=== PATIENT | female | born 1965 | race Two or more races ===

== ENCOUNTER 2020-03-24 06:50 | Day surgery (SDC) | payer OTHER | END 2020-03-24 11:50 | disposition home or self-care (01) | LOC: AMB-ENDOS 06:50 | PROVIDERS: ATTEND Surgery | DX: K62.4 Stenosis of anus and rectum (principal); K62.7 Radiation proctitis; K62.89 Other specified diseases of anus and rectum ==

== ENCOUNTER 2020-04-30 10:47 | Inpatient (IN) | payer OTHER ==
[~2020-04-30] VITALS: Ht 61 cm; Wt 5.0 kg
[2020-04-30] MEDS ORDERED: XARELTO10 MG (10:57)
[2020-04-30] MEDS ORDERED: LOSARTAN POTASS25 MG (10:58)
[2020-04-30] MEDS ORDERED: PROTONIX40 MG (10:58)
[2020-04-30] MEDS ORDERED: ZOCOR20 MG (10:58)
[2020-04-30] MEDS ORDERED: ZOFRAN8 MG (10:59)
[2020-04-30] MEDS ORDERED: LEVSIN0.125 MG (10:59)
[2020-04-30] MEDS ORDERED: AMBIEN10 MG (10:59)
[2020-04-30] MEDS ORDERED: VANCOMYCIN HCL125 MG (11:00)
--- NOTE | 2020-04-30 11:00 | NUR ---
SE RECIBE PTE. FEMENINA ALERTA CONCIENTE Y ORIENTADA QUE REFIERE DIARREAS CONTINUAS Y DOLOR ABDOMINAL JENSEN ESTADO EN TRATAMIENTO EN SHORT CASA Y NO LE ESTA FUNCIONANDO LA MORGAN. LILO MORALES LA ENVIO PARA EVALUACION. PTE. SE REALIZO PRUEBA DE COVI NEGATIVO. SE PASA A AREA DE OBSERVACION.
--- NOTE | 2020-04-30 12:29 | NUR ---
SE ORIENTA PTE SOBRE EL TRATAMIENTO ORDEANDO POR EL DR BOLANOS PTE ALERTA Y CONCIENTE POR 3 RN LEYDI REALIZA MUESTRAS DE LABORATORIO Y ADMINISTRA MEDICAMENTO CLEM ORDENAEDO PTE SE MANTIENE EN OBSERVACION Y BAJO TRATAMIENTO
--- NOTE | 2020-04-30 15:00 | NUR ---
PACIENTE FEMINA ALERTA ORIENTADA EN COMPANIA DE FAMILIAR Y DEVIDAMENTE IDENTIFICADA. AREA DE VENOPUNCION ROSAMARIA DE EDEMA, ERITEMA Y PATENTE. SE RE ORIENTA SOBRE LA CONSULTA CON DEVIN CIFUENTES (CIRUGIA GENERAL) LA MISMA REFIERE ENTENDER. PACIENTE ESTABLE DENTRO DE SHORT CONDICION DE RUKHSANA.
--- NOTE | 2020-04-30 16:51 | NUR ---
PTE CONSULTADA CON DR. GRAZYNA DOW POR COLITIS.
[2020-05-12] MEDS ORDERED: ONDANSETRON ODT4 MG PO (13:49)
[2020-05-12] MEDS ORDERED: METOCLOPRAMIDE10 MG PO (13:50)
[2020-05-12] MEDS ORDERED: GAS RELIEF125 M1 PO (13:51)
[2020-05-12] MEDS ORDERED: LEVSIN/SL0.125 MG PO (13:52)
== END 2020-05-12 19:00 | disposition home or self-care (01) | DRG 814 ==
LOC: ER 10:47 → SURH 19:31
PROVIDERS: ADMIT Surgery; ATTEND Surgery
PROC: BW20YZZ Computerized Tomography (CT Scan) of Abdomen using Other Contrast (ICD-10-PCS; 2020-05-04)
PROC: 02HV33Z Insertion of Infusion Device into Superior Vena Cava, Percutaneous Approach (ICD-10-PCS; 2020-05-04)
PROC: BF11YZZ Fluoroscopy of Biliary and Pancreatic Ducts using Other Contrast (ICD-10-PCS; 2020-05-09)
PROC: 0DJ08ZZ Inspection of Upper Intestinal Tract, Via Natural or Artificial Opening Endoscopic (ICD-10-PCS; principal; 2020-05-11)
DX: D84.821 Immunodeficiency due to drugs (principal); K85.80 Other acute pancreatitis without necrosis or infection; K56.699 Other intestinal obstruction unspecified as to partial versus complete obstruction; K58.0 Irritable bowel syndrome with diarrhea; E86.0 Dehydration; E87.6 Hypokalemia; I10 Essential (primary) hypertension; Z20.828 Contact with and (suspected) exposure to other viral communicable diseases; T45.1X5A Adverse effect of antineoplastic and immunosuppressive drugs, initial encounter; C55 Malignant neoplasm of uterus, part unspecified

== ENCOUNTER 2020-08-03 11:15 | Inpatient (IN) | payer OTHER ==
[~2020-08-03] VITALS: Ht 157.5 cm; Wt 49.9 kg
[~2020-08-03 11:15] MED LIST: AMBIEN10 MG; GAS RELIEF125 M1 PO; LEVSIN/SL0.125 MG PO; LEVSIN0.125 MG; LOSARTAN POTASS25 MG; METOCLOPRAMIDE10 MG PO; ONDANSETRON ODT4 MG PO; PROTONIX40 MG; VANCOMYCIN HCL125 MG; XARELTO10 MG; ZOCOR20 MG; ZOFRAN8 MG
[2020-08-10] MEDS ORDERED: ENOXAPARIN40 MG/0.4 (08:10)
[2020-09-16] MEDS ORDERED: ZOFRAN8 MG PO (14:44)
[2020-09-16] MEDS ORDERED: NEURONTIN300 MG PO (14:44)
[2020-09-16] MEDS ORDERED: METOCLOPRAMIDE10 MG PO (14:44)
[2020-09-16] MEDS ORDERED: HYOSCYAMINE0.125 M1 SL (14:44)
== END 2020-09-16 15:05 | disposition home or self-care (01) | DRG 330 ==
LOC: O/R 08-10 06:23 → SURH 08-10 09:00 → SURG 08-10 13:57 → O/R 08-10 15:00 → SURH 08-11 21:07
PROVIDERS: ADMIT Surgery; ATTEND Surgery
PROC: 0TN70ZZ Release Left Ureter, Open Approach (ICD-10-PCS; 2020-08-10)
PROC: 0DJD8ZZ Inspection of Lower Intestinal Tract, Via Natural or Artificial Opening Endoscopic (ICD-10-PCS; 2020-08-10)
PROC: 0DBN0ZZ Excision of Sigmoid Colon, Open Approach (ICD-10-PCS; principal; 2020-08-10 09:00)
PROC: 0DTP0ZZ Resection of Rectum, Open Approach (ICD-10-PCS; 2020-08-10 09:00)
PROC: 02H633Z Insertion of Infusion Device into Right Atrium, Percutaneous Approach (ICD-10-PCS; 2020-08-16)
PROC: 0DH98UZ Insertion of Feeding Device into Duodenum, Via Natural or Artificial Opening Endoscopic (ICD-10-PCS; 2020-09-05)
PROC: 8E0ZXY6 Isolation (ICD-10-PCS; 2020-09-05)
PROC: 3E0336Z Introduction of Nutritional Substance into Peripheral Vein, Percutaneous Approach (ICD-10-PCS; 2020-09-05)
DX: K56.51 Intestinal adhesions [bands], with partial obstruction (principal); N39.0 Urinary tract infection, site not specified; K94.19 Other complications of enterostomy; K62.7 Radiation proctitis; K56.7 Ileus, unspecified; B96.20 Unspecified Escherichia coli [E. coli] as the cause of diseases classified elsewhere; R33.8 Other retention of urine; F43.23 Adjustment disorder with mixed anxiety and depressed mood; Y83.8 Other surgical procedures as the cause of abnormal reaction of the patient, or of later complication, without mention of misadventure at the time of the procedure; Y83.9 Surgical procedure, unspecified as the cause of abnormal reaction of the patient, or of later complication, without mention of misadventure at the time of the procedure; N28.89 Other specified disorders of kidney and ureter

== ENCOUNTER 2020-11-30 10:00 | Inpatient (IN) | payer OTHER ==
[~2020-11-30] VITALS: Ht 157.5 cm; Wt 48.1 kg
[~2020-11-30 10:00] MED LIST changes: +ENOXAPARIN40 MG/0.4; +HYOSCYAMINE0.125 M1 SL; +NEURONTIN300 MG PO; +ZOFRAN8 MG PO
[2020-12-16] MEDS ORDERED: ZOLPIDEM TARTRA10 MG PO (08:23)
[2020-12-16] MEDS ORDERED: DIPHENOXYLATE-1 EACH PO (08:23)
[2020-12-16] MEDS ORDERED: INTEGRA F CAPS1 EACH PO (08:24)
[2020-12-16] MEDS ORDERED: INTESTINEX680 M1 PO (08:25)
[2020-12-16] MEDS ORDERED: CARAFATE1 GM PO (08:25)
== END 2020-12-16 11:51 | disposition home or self-care (01) | DRG 331 ==
LOC: SURH 12-07 07:00 → O/R 12-07 10:55 → SURG 12-07 18:33 → SURH 12-07 18:42
PROVIDERS: ADMIT Surgery; ATTEND Surgery
PROC: 0DNB0ZZ Release Ileum, Open Approach (ICD-10-PCS; 2020-12-07)
PROC: 0DQB0ZZ Repair Ileum, Open Approach (ICD-10-PCS; principal; 2020-12-07 07:00)
DX: Z43.2 Encounter for attention to ileostomy (principal); F43.23 Adjustment disorder with mixed anxiety and depressed mood; I11.9 Hypertensive heart disease without heart failure; D64.9 Anemia, unspecified; Z20.822 Contact with and (suspected) exposure to COVID-19; K66.0 Peritoneal adhesions (postprocedural) (postinfection)

== ENCOUNTER 2021-11-29 06:10 | Day surgery (SDC) | payer OTHER ==
[~2021-11-29] VITALS: Ht 157.5 cm; Wt 49.9 kg
[~2021-11-29 06:10] MED LIST changes: +CARAFATE1 GM PO; +DIPHENOXYLATE-1 EACH PO; +INTEGRA F CAPS1 EACH PO; +INTESTINEX680 M1 PO; +ZOLPIDEM TARTRA10 MG PO
[2021-11-29] MEDS ORDERED: ULTRAM50 MG PO (10:52)
[2021-11-29] MEDS ORDERED: KETO10TA2 PO (18:06)
[2021-11-29] MEDS ORDERED: NEURONTIN300 MG PO (18:06)
== END 2021-11-29 13:50 | disposition home or self-care (01) ==
LOC: CIR.AMB 06:10
PROVIDERS: ATTEND Surgery
DX: R15.9 Full incontinence of feces (principal); K56.690 Other partial intestinal obstruction; K62.7 Radiation proctitis; Z20.822 Contact with and (suspected) exposure to COVID-19; Z88.0 Allergy status to penicillin; I10 Essential (primary) hypertension; Z79.01 Long term (current) use of anticoagulants; Z86.718 Personal history of other venous thrombosis and embolism
CPT/HCPCS: 64581; 64590; 95972; C1778; L8679

== ENCOUNTER 2022-11-19 09:21 | Inpatient (IN) | payer OTHER ==
[~2022-11-19] VITALS: Ht 157.5 cm; Wt 4.5 kg
[~2022-11-19 09:21] MED LIST changes: +KETO10TA2 PO; +ULTRAM50 MG PO
[2022-11-19] MEDS ORDERED: XIFAXAN550 MG PO (09:34)
[2022-12-10] MEDS ORDERED: INTESTINEX680 M1 PO (18:17)
[2022-12-10] MEDS ORDERED: INTEGRA F CAPS1 EACH PO (18:17)
[2022-12-10] MEDS ORDERED: TORADOL60 MG IM (18:18)
[2022-12-10] MEDS ORDERED: DEMEROL IM (18:19)
[2022-12-10] MEDS ORDERED: LEVSIN/SL0.125 MG SL (18:20)
[2022-12-10] MEDS ORDERED: DIPHENOXYLATE-1 EACH PO (18:20)
[2022-12-10] MEDS ORDERED: QUESTRAN PACKET4 GM PO (18:21)
== END 2022-12-10 18:36 | disposition home or self-care (01) | DRG 392 ==
LOC: ER 09:21 → SEC-K 13:35 → SURH 15:52
PROVIDERS: ADMIT Surgery; ATTEND Surgery
PROC: BW21ZZZ Computerized Tomography (CT Scan) of Abdomen and Pelvis (ICD-10-PCS; 2022-11-19)
PROC: 02HV33Z Insertion of Infusion Device into Superior Vena Cava, Percutaneous Approach (ICD-10-PCS; 2022-11-20)
PROC: 0DBP8ZX Excision of Rectum, Via Natural or Artificial Opening Endoscopic, Diagnostic (ICD-10-PCS; principal; 2022-11-21)
PROC: 0DBM8ZX Excision of Descending Colon, Via Natural or Artificial Opening Endoscopic, Diagnostic (ICD-10-PCS; 2022-11-21)
PROC: 0DBL8ZX Excision of Transverse Colon, Via Natural or Artificial Opening Endoscopic, Diagnostic (ICD-10-PCS; 2022-11-21)
PROC: BW21ZZZ Computerized Tomography (CT Scan) of Abdomen and Pelvis (ICD-10-PCS; 2022-11-29)
DX: K58.0 Irritable bowel syndrome with diarrhea (principal); D68.59 Other primary thrombophilia; K91.89 Other postprocedural complications and disorders of digestive system; K62.89 Other specified diseases of anus and rectum; R15.9 Full incontinence of feces; E87.6 Hypokalemia; F43.20 Adjustment disorder, unspecified; I10 Essential (primary) hypertension; E78.00 Pure hypercholesterolemia, unspecified; Z90.49 Acquired absence of other specified parts of digestive tract; Z90.710 Acquired absence of both cervix and uterus; Z85.41 Personal history of malignant neoplasm of cervix uteri

== ENCOUNTER 2024-06-14 10:40 | Emergency (ER) | payer OTHER ==
[~2024-06-14] VITALS: Ht 157.5 cm; Wt 504.4 kg
[~2024-06-14 10:40] MED LIST changes: +DEMEROL IM; +LEVSIN/SL0.125 MG SL; +QUESTRAN PACKET4 GM PO; +TORADOL60 MG IM; +XIFAXAN550 MG PO
[2024-06-14] MEDS ORDERED: ONDANSETRON HCL 2 MG/ML VIAL IV ONE (11:45)
[2024-06-14] MEDS ORDERED: ONDANSETRON HCL 2 MG/ML VIAL ONE (11:52)
[2024-06-14] MEDS ORDERED: MEPERIDINE HCL/PF 25 MG/ML VIAL IM ONE (12:15)
[2024-06-14] MEDS ORDERED: PROMETHAZINE HCL 25 MG/ML AMPUL IM ONE (12:15)
[2024-06-14 12:24] LABS: PH,URINE 6.5 (5.0-8.0); URINE APPEARANCE Clear; URINE BILIRRUBIN Negative (NEGATIVE); URINE BLOOD Negative; URINE COLOR Yellow; URINE GLUCOSE Negative (NEGATIVE); URINE KETONE Negative (NEGATIVE); URINE LEUKOCYTE Trace; URINE NITRATE Negative; URINE PROTEIN Negative (NEGATIVE); URINE UROBILINOGEN 0.2 E.U./dl
[2024-06-14 12:27] LABS: URINE BACTERIA 17.1 uL (0.0-1933); URINE EPITHELIAL CELLS 5.8 uL (0.0-38.8); URINE WBC 7.5 uL (0.0-23.2)
[2024-06-14] MEDS ORDERED: PROMETHAZINE HCL 25 MG/ML AMPUL ONE (12:40)
[2024-06-14 12:42] LABS: HEMATOCRIT 38.1 % (36.0-45.00); HEMOGLOBIN 13.2 g/dL (12.0-15.00); MEAN CELL VOLUME 87.6 fL (80.00-100.00); MEAN CORPUSCULAR HEMOGLOBIN 30.4 pg (27.00-32.0); MEAN CORPUSCULAR HGB CONC 34.7 g/dl (32.0-36.0); PLATELET COUNT 250 K/uL (150-450); RED BLOOD COUNT 4.36 M/uL (4.00-6.00); RED CELL DISTRIBUTION WIDTH 13.6 % (11.5-14.5)
[2024-06-14 12:44] LABS: URINE CAST 0.29 uL (0.0-1.40); URINE RBC 0.2 uL (0.0-20.8)
[2024-06-14 12:48] LABS: ALBUMIN 3.9 gm/dL (3.4-5.0); BILIRUBIN TOTAL 0.23 mg/dL (0.3-1.2); CALCIUM 9.1 mg/dL (8.5-10.1); CREATININE SERUM 0.83 mg/dL (0.55-1.02); GFR 70.12; GLOBULINA 3.9 G/DL (2.4-3.5); POTASSIUM 4.28 mEq/L (3.5-5.1); TOTAL PROTEIN 7.8 gm/dL (6.4-8.2)
== END 2024-06-14 16:17 | disposition home or self-care (01) ==
LOC: ER 10:42
PROVIDERS: General Practice
DX: K52.9 Noninfective gastroenteritis and colitis, unspecified (principal); I10 Essential (primary) hypertension; Z88.0 Allergy status to penicillin
CPT/HCPCS: 36415; 74176; 96365; 96372; 99284; J2250; J2405; J3490